=== PATIENT | female | born 2000 | race African-American/Black ===

== ENCOUNTER 2021-09-26 16:57 | Inpatient (IN) ==
[2021-09-26] MEDS ORDERED: OXYTOCIN/LR 20 UNIT/1,000 ML BAG IV ONE (17:19)
[2021-09-26] MEDS ORDERED: MEPERIDINE 50 MG/1 ML VIAL IV PRN (17:19)
[2021-09-26] MEDS ORDERED: miSOPROStoL 200 MCG TABLET RECTAL PRN (17:19)
[2021-09-26] MEDS ORDERED: METHYLERGONOVINE 0.2 MG/1 ML AMP IM PRN (17:19)
[2021-09-26] MEDS ORDERED: CARBOPROST TROMETHAMINE 250 MCG/ML AMP IM PRN (17:19)
[2021-09-26] MEDS ORDERED: ONDANSETRON 4 MG/2 ML VIAL IV PRN (17:19)
[2021-09-26] MEDS ORDERED: BUTORPHANOL 2 MG/ML VIAL IV PRN (17:19)
[2021-09-26] MEDS ORDERED: TRANEXAMIC ACID 1,000 MG in SODIUM CHLORIDE 0.9% 100 ML IV PRN (17:19)
[2021-09-26] MEDS ORDERED: CITRIC ACID/SODIUM CITRATE 30 ML UDCUP PO ONE (17:23)
[2021-09-26] MEDS ORDERED: FAMOTIDINE 20 MG/2 ML VIAL IV ONE (17:23)
[2021-09-26] MEDS ORDERED: diphenhydrAMINE 50 MG/1 ML VIAL IV PRN ×2 (17:23)
[2021-09-26] MEDS ORDERED: PROMETHAZINE 25 MG/1 ML VIAL IM ONE (17:23)
[2021-09-26] MEDS ORDERED: hydrOXYzine HCL 25 MG/1 ML VIAL IM PRN (17:23)
[2021-09-26] MEDS ORDERED: LACTATED RINGERS 1,000 ML IV ONE (17:23)
[2021-09-26] MEDS ORDERED: NALOXONE 0.4 MG/ML VIAL IV PRN (17:23)
[2021-09-26] MEDS ORDERED: ONDANSETRON 4 MG/2 ML VIAL IV ONE (17:23)
[2021-09-26] MEDS ORDERED: ePHEDrine 50 MG/ML VIAL IV PRN (17:23)
[2021-09-26] MEDS ORDERED: OXYTOCIN/LR 20 UNIT/1,000 ML BAG IV SCH (17:30)
[2021-09-26] MEDS ORDERED: LACTATED RINGERS 1,000 ML IV SCH ×2 (17:30→19:30)
[2021-09-26] MEDS ORDERED: fentaNYL 2 MCG/ROPIV 0.2% EPID 100 ML EPIDURAL SCH (17:30)
[2021-09-26 17:40] LABS: Basophils % 0.3 % (0.0-0.8); Eosinophils % 0.1 % (0.00-10.9); Hematocrit 32.7 VOL% (35.7-47.0); Hemoglobin 10.6 GM/DL (12.0-16.0); Immature Granulocytes % 0.6 %; Immature Granulocytes Absolute 0.09 #; Lymphocytes # 2.6 10*3/uL (1.4-4.0); Mean Corpuscular HGB Conc 32.4 GM/DL (32-36); Mean Corpuscular Volume 93.7 FL (87-102); Mean Platelet Volume 10.1 FL (9.6-12.0); Monocytes # 1.3 10*3/uL (0.11-0.8); Monocytes % 8.7 % (1.7-12.7); Neutrophils % 72.3 % (38.7-73.9); Platelet Count 275 T/CUMM (130-400); Red Blood Count 3.49 MC/CUMM (3.8-5.5); White Blood Count 14.7 T/CUMM (4-12)
[2021-09-26 17:57] LABS: Bilirubin,Total 0.5 MG/DL (0.20-1.00); Calcium 8.7 MG/DL (8.5-10.1); Potassium 3.2 MMOL/L (3.5-5.1); Total Protein 7.2 G/DL (6.4-8.2)
[2021-09-26] MEDS ORDERED: AMPICILLIN INJ 2,000 MG in SODIUM CHLORIDE 0.9% 100 ML IV ONE (18:00)
[2021-09-26 19:04] LABS: Cord Arterial Blood HCO3 20.4 MMOL/L
[2021-09-26 19:08] LABS: Cord Venous Blood HCO3 20.6 MMOL/L; Cord Venous Blood PCO2 42.5 MMHG; Cord Venous Blood PO2 24.1
[2021-09-26] MEDS ORDERED: POTASSIUM CHLORIDE 20 MEQ TABLET PO PRN (19:14)
[2021-09-26] MEDS ORDERED: ACETAMINOPHEN 500 MG TABLET PO PRN (19:15)
[2021-09-26] MEDS ORDERED: BISACODYL 10 MG SUPP RECTAL PRN (19:15)
[2021-09-26] MEDS ORDERED: MAGNESIUM HYDROXIDE SUSP 30 ML UDCUP PO PRN (19:15)
[2021-09-26 19:28] LABS: Glucose,Urine (UA) Negative (Negative); Ketones,Urine 40 mg/dL (Negative); Nitrite,Urine Negative (Negative); Protein,Urine 100 mg/dL (Negative); Urine Appearance Clear (Clear); Urine Color Yellow (Yellow); Urine Specific Gravity >= 1.030 (1.001-1.035)
[2021-09-26 19:29] LABS: Bilirubin,Urine Small mg/dL (Negative); Blood, Urine Negative (Negative); Urine Urobilinogen 0.2 eU/dL (<2.0)
[2021-09-26 19:32] LABS: Mucus,Urine Many /LPF (Occasional); Squamous Epithelial Cell,Urine Occasional /HPF (0-10)
[2021-09-26 19:42] LABS: Barbiturates Screen,Urine Negative (Negative); Benzodiazepines Screen,Urine Negative (Negative); Cannabinoid Screen,Urine Positive (Negative); Opiate Screen,Urine Negative (Negative); Phencyclidine Screen,Urine Negative (Negative)
[2021-09-26] MEDS ORDERED: HYDROCORTISONE 2.5% RECTAL CREAM 30 GM TUBE TOP PRN (20:00)
[2021-09-26 20:40] LABS: RPR Confirm - Less than 1 yr REACTIVE (Nonreactive)
[2021-09-26] MEDS ORDERED: METRONIDAZOLE IV ONE (21:00)
[2021-09-26] MEDS: DOCUSATE SODIUM 100 MG CAPSULE PO SCH (21:33)
[2021-09-26] MEDS ORDERED: AMPICILLIN INJ 1,000 MG in SODIUM CHLORIDE 0.9% 100 ML IV SCH (22:00)
[2021-09-27] MEDS: IBUPROFEN 800 MG TABLET PO PRN ×2 (00:49→20:03)
[2021-09-27 05:10] LABS: Basophils % 0.2 % (0.0-0.8); Eosinophils % 0.1 % (0.00-10.9); Hematocrit 32.3 VOL% (35.7-47.0); Hemoglobin 10.5 GM/DL (12.0-16.0); Immature Granulocytes % 0.5 %; Immature Granulocytes Absolute 0.09 #; Lymphocytes # 2.1 10*3/uL (1.4-4.0); Lymphocytes % 12.3 % (21.3-54.2); Mean Corpuscular HGB Conc 32.5 GM/DL (32-36); Mean Corpuscular Volume 94.2 FL (87-102); Mean Platelet Volume 10.8 FL (9.6-12.0); Monocytes % 5.6 % (1.7-12.7); Neutrophils % 81.3 % (38.7-73.9); Platelet Count 245 T/CUMM (130-400); Red Blood Count 3.43 MC/CUMM (3.8-5.5); White Blood Count 17.2 T/CUMM (4-12)
[2021-09-27] MEDS: DOCUSATE SODIUM 100 MG CAPSULE PO SCH ×2 (09:27→21:23)
[2021-09-27] MEDS ORDERED: POTASSIUM CHLORIDE 20 MEQ TABLET PO SCH (21:00)
[2021-09-28 07:25] VITALS: BP 130/68
[2021-09-28] MEDS: DOCUSATE SODIUM 100 MG CAPSULE PO SCH (08:14)
== END 2021-09-28 12:45 | disposition home or self-care (01) | DRG 560 ==
LOC: N.LDOUT 16:57 → N.LD 17:01 → N.OB 22:45
PROVIDERS: ADMIT Obstetrics & Gynecology; ATTEND Obstetrics & Gynecology